=== PATIENT | male | born 1965 | race Caucasian/White ===

== ENCOUNTER 2021-01-24 07:20 | Outpatient (REF) | payer OTHER, SELFPAY ==
[2021-01-24 07:56] LABS: MANUAL DIFF FLAG NO
[2021-01-24 08:02] LABS: Basophils Percent Auto 0.3 % (0-2); Eosinophils Absolute Auto 0.2 X10*3/uL (0.0-0.4); Eosinophils Percent Auto 2.3 % (0-4); Hematocrit 47.2 % (42-52); Hemoglobin 16.1 g/dl (14.0-18.0); Imm Gran Abs Auto 0.02 X10*3/uL (0.00-0.03); Imm Gran Pct Auto 0.3 % (0.0-0.4); Lymphocytes Absolute Auto 1.3 X10*3/uL (1.2-4.9); Lymphocytes Percent Auto 19.8 % (20-40); Mean Corpuscular HGB Conc 34.1 g/dl (31.0-36.0); Mean Corpuscular Hemoglobin 31.9 pg (27.0-33.0); Mean Corpuscular Volume 93.7 fL (80-98); Monocytes Absolute Auto 0.6 X10*3/uL (0.1-1.2); Monocytes Percent Auto 8.7 % (2-11); Neutrophils Absolute Auto 4.5 X10*3/uL (2.0-8.3); Neutrophils Percent Auto 68.6 % (45-73); Platelet Count 207 X10*3/uL (160-400); Red Blood Count 5.04 X10*6/uL (4.60-5.80); Red Cell Distribution Width 12.3 % (11.0-16.0); White Blood Count 6.6 X10*3/uL (4.8-10.8)
[2021-01-24 08:30] LABS: Alanine Aminotransferase 23 U/L (0-40); Albumin Level 4.6 g/dL (3.5-5.0); Alkaline Phosphatase 58 U/L (39-117); Anion Gap 13 (12-20); Aspartate Amino Transferase 23 U/L (5-37); Bilirubin Total 0.9 mg/dL (0.0-1.0); Blood Urea Nitrogen 12 mg/dL (9-16); Calcium 9.3 mg/dL (8.4-10.2); Carbon Dioxide 30 mmol/L (22-29); Chloride 103 mmol/L (96-108); Cholesterol 242 mg/dL; Estimated Glomerular Filt Rate > 60; Glucose Fasting 96 mg/dL (60-99); HDL Cholesterol 42 mg/dL; LDL Cholesterol Calculated 173 mg/dl; Potassium 4.5 mmol/L (3.3-5.1); Sodium 141 mmol/L (135-145); Total Protein 7.3 g/dL (6.5-8.0); Triglycerides 137 mg/dL
[2021-01-26 10:06] LABS: SARS COV2 IgG Negative (Negative)
== END 2021-01-24 07:21 | disposition home or self-care (01) ==
LOC: HO.LAB 07:20
PROVIDERS: PCP Internal Medicine; Visit Provider Internal Medicine
DX: Z00.00 Encounter for general adult medical examination without abnormal findings (principal); E11.9 Type 2 diabetes mellitus without complications; Z20.822 Contact with and (suspected) exposure to COVID-19
CPT/HCPCS: 36415; 80053; 80061; 85025; 86769

== ENCOUNTER → 2022-03-28 14:05 | Outpatient (BNVA) | payer OTHER, SELFPAY | PROVIDERS: PCP Internal Medicine; Referring Provider Internal Medicine; Visit Provider Surgery | DX: K62.5 Hemorrhage of anus and rectum (principal) ==

== ENCOUNTER 2022-05-18 06:43 | Day surgery (SDC) | payer OTHER, SELFPAY ==
--- NOTE | 2022-05-17 11:38 | HO.ANESPROP2 ---
Documented by User: Linda Diaz NP 05/17/22 11:38 HPI - Anesthesia Eval Consult details Narrative: 56yo M for Colonoscopy [facility] Active Problems Active Problems: All Active Problems (Updated 02/21/22 @ 09:33 by Heron Franklin MD) Rectal bleeding (Acute) Hyperlipidemia (Acute) Physical exam (Acute) Past Medical History Medical History Hyperlipidemia Family History Family History Father No problems noted. Mother No problems noted. Surgical History Surgical History History of cholecystectomy History of knee replacement procedure of left knee Social History Social History Housing: House Alcohol intake: current Alcohol intake frequency: 0-2 drinks per day Patient Tobacco Use Status: Current everyday Tobacco user Tobacco use type: Cigarette Cigarettes Per Day: 2 Smoked in Last 30 Days: Yes e-Cigarette/Vaping Use: Never Used Patient Interested in Nicotine Replacement: No Second Hand Smoke Exposure: No Are you DNR?: No Advance Directives: No Advance Directives Information Provided: Yes Nutrition Risks: No Nutritional Risk service: No Current occupational status: employed Current occupational exposures/hazards: No Cognitive needs: No Hearing needs: No (needs an order for them) Vision needs: Yes Meds Allergies Allergy/AdvReac Type Severity Reaction Status Date / Time No Known Allergies Allergy Verified 05/18/22 07:25 [No Known Allergies*] Exam Exam Date and Time: May 17, [id number] Assessment and Plan Assessment Anesthesia Assessment: Chart Reviewed Documented by User: Mary Ireland MD 05/18/22 10:42 PMFSH Past Medical History Medical History Hyperlipidemia Family History Family History Father No problems noted. Mother No problems noted. Surgical History Surgical History History of cholecystectomy History of knee replacement procedure of left knee History of Problems with Anesthesia: No Social History Social History Housing: House Alcohol intake: current Alcohol intake frequency: 0-2 drinks per day Patient Tobacco Use Status: Current everyday Tobacco user Tobacco use type: Cigarette Cigarettes Per Day: 2 Smoked in Last 30 Days: Yes e-Cigarette/Vaping Use: Never Used Patient Interested in Nicotine Replacement: No Second Hand Smoke Exposure: No Are you DNR?: No Advance Directives: No Advance Directives Information Provided: Yes Nutrition Risks: No Nutritional Risk service: No Current occupational status: employed Current occupational exposures/hazards: No Cognitive needs: No Hearing needs: No (needs an order for them) Vision needs: Yes Meds Allergies Allergy/AdvReac Type Severity Reaction Status Date / Time No Known Allergies Allergy Verified 05/18/22 07:25 [No Known Allergies*] Exam Airway Mallampati Class: II TM Dist: >3cm Neck ROM: Full Denture: Upper Partial: Lower Loose/Missing/Broken Teeth: Yes, Upper and Lower Heart: RRR Lungs: CTA Assessment and Plan Assessment Anesthesia Assessment: Anesthesia Plan Discussed Final Anesthetic Review History of Problems with Anesthesia: No NPO: Yes ASA Class: II Final Preanesthetic Review: Meds/Allgs Chart Reviewed, Consent Obtained/Reviewed and Anes Risks/Benef Reviewed Patient Risk: Low Procedure Risk: Low Anesthetic Plan Anesthetic Plan: MAC: Disposition: Standard PACU
[2022-05-18 07:21] VITALS: BP 118/80; PULSE 66; RESP 18; TEMP 36.6; O2SAT 95; BMI 31.0
[2022-05-18] MEDS: Lactated Ringers 1,000 ML 100 ML IVCONT (07:25)
--- NOTE | 2022-05-18 07:40 | PC.NURSE ---
dr. haywood aware pt is a smoker. very slight crackles in right lower base. dr. haywood assessed. okay to proceed. no interventions at this time.
--- NOTE | 2022-05-18 09:54 | MHC.SHP ---
Pre-Procedural Eval Section A Date of Service: 05/18/22 Section B Chief Complaint: bleeding Details of Present Illness: passage of bright blood per rectum Relevant Family History (Specify if Yes): No Relevant Social History: None Present Medications: see Short Stay Collaborative assessment Medical History: Significant History ( hyperlipidemia) Allergies: Allergies Allergy/AdvReac Type Severity Reaction Status Date / Time No Known Allergies Allergy Verified 05/18/22 07:25 [No Known Allergies*] Review of Systems Sugical H&P ROS: Negative: Constitution, Cardiovascular, Respiratory, Neurological, Psychiatric, Hem-Onc, Allergic/Immunologic, Gastrointestinal, Genitourinary, Musculoskeletal, Integumentary, Endocrine and Eyes/Ears/Nose/Throat Exam Surgical H&P Exam: Normal: HEENT, Normal: Heart, Normal: Lungs, Normal: Extremities, Normal: Abdomen, Normal: Skin and Normal: Neurological Plan Diagnosis/Plan: Unchanged I have reviewed the history and physical and performed a pertinent physical examination on my patient. No changes have occurred unless specified.
--- NOTE | 2022-05-18 11:04 | P.OP_ITS ---
Operative Note Operative Note Date of Service: 05/18/22 Narrative: Preop diagnosis: Rectal bleeding, and colon cancer screening Postop diagnosis: 1. Small polyp, about 5 mm, at level 30, removed with biopsy forceps 2. small polyp about 2-3 mm, at level 15, removed with biopsy forceps 3. diverticulosis of the sigmoid 4. internal and external hemorrhoid Pprocedure: Colonoscopy with polypectomy using cold forceps x2 surgeon: Angel Bryant MD The patient is a 56-year-old male, referred because of his of bright blood per rectum. He did state that he knows he has hemorrhoids and has had a history of passes of bright blood per rectum in the past. He however says that he is due for his colonoscopy. He says he had a colonoscopy 5 years ago and was told that he needed another 1 within 5 years because of the presence of polyps. He understood the technique of colonoscopy and was aware of the risks, benefits, and alternatives . He was brought to the operating room. He was placed in left lateral decubitus position under monitored anesthesia care. A full digital rectal exam was done. There were no palpable anal lesions. The tip of the Olympus colonoscope was gently introduced through the anal orifice advanced with insufflation all the cecum. The cecum was intubated. The cecum was identified by visualization of the ileocecal valve as well as the appendiceal orifice. The cecal mucosa was unremarkable. The scope was gradually withdrawn with careful examination of the entire colonic mucosa being done with scope withdrawal. The patient had some thin coating of water stools some segments so we had to use the scalehouse attendant to clear the mucosa. It was unlikely that any lesion may have been missed . There was note of moderate diverticulosis of the sigmoid . At level 30 cm, there was note of a 5 mm polyp which was removed using multiple bites of cold forceps. At level 15 cm there was note of a small polyp about 2-3 mm also removed with the biopsy forceps . The rest of the distal rectum was in the anal canal was unremarkable. He did have internal and external margins, non bulky. The scope was then withdrawn completely with desufflation The patient tolerated procedure well. There were no complication noted. His next colonoscopy may likely be within the next 5 years because of his polyps.
[2022-05-18 11:10] VITALS: BP 95/60; PULSE 78; RESP 18; TEMP 36.3; O2SAT 94
[2022-05-18 11:25] VITALS: BP 117/80; PULSE 81; RESP 18; TEMP 36.8; O2SAT 95
== END 2022-05-18 12:37 | disposition home or self-care (01) ==
PROVIDERS: PCP Internal Medicine; Visit Provider Surgery
PROC: 0DJD8ZZ Inspection of Lower Intestinal Tract, Via Natural or Artificial Opening Endoscopic (ICD-10-PCS; CPT 45378; principal; 2022-05-18 10:00)
DX: K62.5 Hemorrhage of anus and rectum (principal); Z86.010 Personal history of colon polyps; K63.5 Polyp of colon; K51.40 Inflammatory polyps of colon without complications; K57.30 Diverticulosis of large intestine without perforation or abscess without bleeding; K64.8 Other hemorrhoids; K64.4 Residual hemorrhoidal skin tags; E78.5 Hyperlipidemia, unspecified; Z90.49 Acquired absence of other specified parts of digestive tract; Z96.652 Presence of left artificial knee joint; F17.210 Nicotine dependence, cigarettes, uncomplicated
CPT/HCPCS: 45380; 88305; J2250

== ENCOUNTER 2024-04-23 08:44 | Outpatient (AMB) | payer OTHER, SELFPAY ==
[2024-04-23 08:48] VITALS: BP 118/72; PULSE 70; O2SAT 98; BMI 30.9
--- NOTE | 2024-04-23 08:48 | MHC.PC.OV ---
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: No Accompanied by: Self / Same As Patient Allergies No Known Allergies [No Known Allergies*] Allergy (Verified 04/23/24 08:48) Tobacco use date assessed: 04/23/24 Dental Screening Dental Screen Date: 04/23/24 Did you have a dental visit in the last 12 months?: No Did you have a dental problem in the last 6 months where you did not have access to dental care?: No HPI annual exam HPI Details has some fecal incontinence for a few years PFSH Medical History Hyperlipidemia Surgical History History of cholecystectomy History of knee replacement procedure of left knee Family History Father No problems noted. Mother No problems noted. Social History Housing: House Alcohol intake: current Alcohol intake frequency: 0-2 drinks per day Patient Tobacco Use Status: Current everyday Tobacco user Tobacco use type: Cigarette Cigarettes Per Day: 2 e-Cigarette/Vaping Use: Never Used Second Hand Smoke Exposure: No service: No Current occupational status: employed Current occupational exposures/hazards: No Cognitive needs: No Hearing needs: No (needs an order for them) Vision needs: Yes Questionnaire PHQ-9 Over the last 2 weeks, how often have you been bothered by any of the following problems? 1. Little interest or pleasure in doing things: not at all 2. Feeling down, depressed, or hopeless: not at all 3. Trouble falling or staying asleep, or sleeping too much: not at all 4. Feeling tired or having little energy: not at all 5. Poor appetite or overeating: not at all 6. Feeling bad about yourself - or that you are a failure or have let yourself or your family down: not at all 7. Trouble concentrating on things, such as reading the newspaper or watching television: not at all 8. Moving or speaking so slowly that other people could have noticed. Or the opposite - being so fidgety or restless that you have been moving around a lot more than usual: not at all 9. Thoughts that you would be better off or of hurting yourself in some way: not at all Total score: 0 Depression Screening Interpretation: Negative Depression Screening Done: Yes 21627 - PHQ-9 Billing: Yes Source: Developed by Drs. John Downing, Cammy Wellington, Harpal Dyer and colleagues, with an educational nadiya from [employer]. Thrive Questionnaire Date Thrive assessed: 04/23/24 I am a: Patient What is your living situation today?: I have a steady place to live Within the past 12 months, did the food you bought not last and you didn't have the money to get more?: Never true Within the past 12 months, did you worry whether your food would run out before you got money to buy more?: Never true Do you have trouble paying for medicines?: No Do you have trouble getting transportation to medical appointments?: No Do you have trouble paying your heating and electricity bill?: No Do you have trouble taking care of your child, family member or friend?: No Do you have trouble with day-to-day activities such as bathing, preparing meals, shopping, managing finances, etc.?: No Are you currently unemployed and looking for a job?: No Are you interested in more education?: No Please select the resources that you would like help with: None Currently or been in a relationship where the following occur: no concerns reported THRIVE Score: 0 AUDIT C Alcohol Use Questionnaire (AUDIT-C) 1. How often do you have a drink containing alcohol?: 4 or more times a week 2. How many drinks containing alcohol do you have on a typical day when you are drinking?: 5 or 6 3. How often do you have six or more drinks on one occasion?: Never Total Score: 6 Score Reviewed/Action Taken: Yes JANET-7 AMB Questionnaire JANET-7 Date JANET - 7 assessed: 04/23/24 Feeling nervous, anxious, or on edge: 0 = Not at all Not being able to stop or control worryin = Not at all Worrying too much about different things: 0 = Not at all Trouble relaxin = Not at all Being so restless that it is hard to sit still: 0 = Not at all Becoming easily annoyed or irritable: 0 = Not at all Feeling afraid as if something awful might happen: 0 = Not at all Total JANET-7 score (0-4 normal; 5-9 mild; 10-14 moderate; 15-21 severe): 0 Source: Developed by Drs. John Downing, Cammy Wellington, Harpal Dyer and colleagues, with an educational nadiya from [employer]. JANET-7 Assessment Billing JANET-7 Assessment Tool: JANET-7 Assessment 36639 Review of Systems Const Denies chills, Denies fatigue, Denies headache(s) and Denies weight loss Eyes Denies change in vision, Denies diplopia and Denies eye pain ENT Denies vertigo, Denies dizziness, Denies headache(s) and Denies nasal discharge Card Denies chest pain, Denies rapid heart rate and Denies dyspnea on exertion Resp Denies chest congestion, Denies cough, Denies pain with cough and Denies dyspnea on exertion GI Denies abdominal pain, Denies hematochezia and Denies change in bowel habits Musc Denies myalgias, Denies arthralgias and Denies joint swelling Skin/Breast Denies lesions and Denies unusual bruising Neuro Denies vertigo, Denies dizziness, Denies headache(s) and Denies focal weakness Endo Denies fatigue Physical exam (Primary Care) Vital Signs: Last Vital Signs Pulse 70 04/23/24 08:48 BP 118/72 04/23/24 08:48 Pulse Ox 98 04/23/24 08:48 Oxygen Delivery Method Room Air 04/23/24 08:48 BMI result Body Mass Index 30.9 Tobacco/Smoking Status: Tobacco use Status Tobacco use date assessed 04/23/24 04/23/24 08:53 Patient Tobacco Use Status Current everyday Tobacco 04/23/24 08:53 Tobacco use type Cigarette 04/23/24 08:53 e-Cigarette/Vaping Use Never Used 04/23/24 08:53 PHQ-9: PHQ-9 Score PHQ-9: Total score 0 04/23/24 08:53 Depression Screening Interpretation: Negative Thrive Assessment: Date of Thrive Assessment Date Thrive assessed 04/23/24 04/23/24 08:53 Currently or been in a relationship where the following occur: no concerns reported Const General: cooperative, healthy appearing and no acute distress Orientation/consciousness: oriented to person, oriented to place and oriented to time HENMT Head: Yes normal to inspection, Yes normocephalic and Yes atraumatic Mouth: Normal oral and palatal mucosa present and tongue normal Throat: Yes posterior oropharynx normal and Yes uvula midline Eyes General: appearance normal, both eyes and all related structures Neck Neck: Yes normal visual inspection, Yes full ROM and Yes no lymphadenopathy Thyroid: Thyroid normal Carotids: normal carotid upstroke Chest Chest palpation & inspection: normal inspection of the chest Resp Effort & Inspection: normal respiratory effort and able to speak in complete sentences Auscultation: clear to auscultation bilaterally Cardio Jugular venous distension: no JVD Palpation: normal PMI Rate: regular rate Rhythm: regular rhythm Heart sounds: S1 normal heart sound present and S2 normal heart sound present GI Inspection: Yes normal to inspection Palpation (GI): Soft to palpation and No hepatosplenomegaly present Auscultation: normal bowel sounds General: Yes no CVA tenderness Back/Spine/Pelvis Back: no CVA tenderness Skin General skin exam: no rashes or lesions noted Neuro General: oriented to person, oriented to place and oriented to time Extrem General: Yes normal to inspection and Yes full ROM Assessment and Plan Assessment & Plan (1) Physical exam: Code(s): Z00.00 - Encounter for general adult medical examination without abnormal findings Plan: do labs (2) Fecal incontinence: Code(s): R15.9 - Full incontinence of feces Plan: ref gen shar Orders: Orders Complete Blood Count Auto Diff Today Z13.0 - Encounter for screening for diseases of the blood and blood-forming organs and certain disorders involving the immune mechanism Comprehensive [place]. Panel Fast Today Z13.9 - Encounter for screening, unspecified Lipid Panel Today Z13.220 - Encounter for screening for lipoid disorders Prostate Specific Antigen Scr Today Z00.00 - Encounter for general adult medical examination without abnormal findings Referrals General Surgery Referral R15.9 - Full incontinence of feces Coding Level of Care Code Est Pt Prev Care 40-64y(21063) Diagnoses Physical exam Z00.00 Fecal incontinence R15.9 Additional Codes JANET-7 Assessment Billing - JANET-7 Assessment Tool: JANET-7 Assessment [id number] ([id number])
== END 2024-04-23 09:09 | disposition home or self-care (01) ==
PROVIDERS: PCP Internal Medicine; Visit Provider Internal Medicine
DX: Z00.00 Encounter for general adult medical examination without abnormal findings (principal); R15.9 Full incontinence of feces
CPT/HCPCS: 99396

== ENCOUNTER 2025-04-14 07:46 | Outpatient (AMB) | payer OTHER, SELFPAY ==
--- NOTE | 2025-04-14 07:56 | MHC.OFFVIS ---
Vital Signs 04/14/25 08:04 Height 5 ft 9 in Weight 208 lb BMI 30.7 BP 140/78 H Blood Pressure Location Lt brachial Position Sitting Pulse 75 Pulse Oximetry (%) 96 Oxygen Delivery Method Room Air Intake Visit Reasons: colo screening Intake Note: Patient new consult for 2nd pre Colonoscopy screening. Patient denies any GI issues for today. Patient have last Colonoscopy with Dr. Bryant. Legal Billing Coordinator Required: No Accompanied by: Self / Same As Patient Allergies No Known Allergies [No Known Allergies*] Allergy (Verified 04/14/25 07:55) Medication List - Last Reconciled 04/14/25 by Ginny Mello CNP bisacodyl 5 mg PO ONCE 1 day polyethylene glycol 3350 (Miralax) 238 grams PO ONCE HPI HPI colo screening: Details: Patient is a 59-year-old male with PMH of hyperlipidemia. Referred by PCP for further evaluation of fecal incontinence. He presents today for pre colonoscopy screening. he denies any GI symptoms, including fecal incontinence. Shares his main priority is colonoscopy screening given his history of polyps found on his last two colonoscopies. He denies any FDR history with colon cancer. He reports daily bowel movements without difficulty. He reports infrequent pyrosis that is triggered by foods. States he avoids those foods for prevention. Patient denies: regurgitation, dysphasia, unintentional wt loss, ab pain or melena/hematochezia. States he plans to reconnect with General surgery to discuss abdominal hernia repair. Social hx: six pack of beer /day denies recreational drug use some of day cigarette smoker - family hx as below -denies personal hx of CA -significant cardiopulmonary history -tolerated anesthesia in the past without difficulty. PFSH Medical History (Updated 04/14/25 @ 08:47 by Ginny Mello CNP) Alcohol use Current smoker on some days Heartburn Colon polyp, hyperplastic Hyperlipidemia Surgical History (Updated 04/14/25 @ 07:57 by Racheal Damon) Hx of colonoscopy History of cholecystectomy History of knee replacement procedure of left knee Family History Father No problems noted. Mother No problems noted. Social History Housing: House Alcohol intake: current Alcohol intake frequency: 0-2 drinks per day Patient Tobacco Use Status: Current everyday Tobacco user Tobacco use type: Cigarette Cigarettes Per Day: 2 e-Cigarette/Vaping Use: Never Used Second Hand Smoke Exposure: No service: No Current occupational status: employed Current occupational exposures/hazards: No Cognitive needs: No Hearing needs: No (needs an order for them) Vision needs: Yes Review of Systems Const Reports as per HPI ENT Reports as per HPI Card Reports as per HPI Resp Reports as per HPI GI Reports as per HPI Reports as per HPI Physical Exam Const General: healthy appearing, no acute distress and well developed Nutritional Appearance: well nourished Orientation/consciousness: patient oriented x3 HEENT Head: Yes normal to inspection, Yes normocephalic and Yes atraumatic Face and sinus: Yes normal facial exam Eyes General: appearance normal, both eyes and all related structures Neck Neck: Yes normal visual inspection Resp Effort & Inspection: normal respiratory effort, able to speak in complete sentences, no tracheal deviation and symmetric chest movement Auscultation: clear to auscultation bilaterally Cardio Jugular venous distension: no JVD Rate: regular rate Rhythm: regular rhythm Heart sounds: S1 normal heart sound present, S2 normal heart sound present, no gallops and no murmurs GI Inspection: Yes normal to inspection and No distended Palpation (GI): Soft to palpation, not firm, nontender, No hepatosplenomegaly present and Hernia present (+ midline rigid ) umbilical Auscultation: normal bowel sounds Neuro General: patient oriented x3 Gait exam (Neuro): Normal gait present Psych Appearance: grossly normal Mental Status: mental status grossly normal Speech and movement: Normal speech and movement present Affect: normal affect Attitude: cooperative Thought process: Normal thought process present Thought content: Normal thought content present Insight: Good insight present (Psych) Judgement: Good judgement present (Psych) Results Reviewed Results Reviewed: Operative Note Date of Service: 05/18/22 Narrative: Preop diagnosis: Rectal bleeding, and colon cancer screening Postop diagnosis: 1. Small polyp, about 5 mm, at level 30, removed with biopsy forceps 2. small polyp about 2-3 mm, at level 15, removed with biopsy forceps 3. diverticulosis of the sigmoid 4. internal and external hemorrhoid Pprocedure: Colonoscopy with polypectomy using cold forceps x2 surgeon: Angel Bryant MD The patient is a 56-year-old male, referred because of his of bright blood per rectum. He did state that he knows he has hemorrhoids and has had a history of passes of bright blood per rectum in the past. He however says that he is due for his colonoscopy. He says he had a colonoscopy 5 years ago and was told that he needed another 1 within 5 years because of the presence of polyps. He understood the technique of colonoscopy and was aware of the risks, benefits, and alternatives . He was brought to the operating room. He was placed in left lateral decubitus position under monitored anesthesia care. A full digital rectal exam was done. There were no palpable anal lesions. The tip of the Olympus colonoscope was gently introduced through the anal orifice advanced with insufflation all the cecum. The cecum was intubated. The cecum was identified by visualization of the ileocecal valve as well as the appendiceal orifice. The cecal mucosa was unremarkable. The scope was gradually withdrawn with careful examination of the entire colonic mucosa being done with scope withdrawal. The patient had some thin coating of water stools some segments so we had to use the cloth winder machine operator to clear the mucosa. It was unlikely that any lesion may have been missed . There was note of moderate diverticulosis of the sigmoid . At level 30 cm, there was note of a 5 mm polyp which was removed using multiple bites of cold forceps. At level 15 cm there was note of a small polyp about 2-3 mm also removed with the biopsy forceps . The rest of the distal rectum was in the anal canal was unremarkable. He did have internal and external margins, non bulky. The scope was then withdrawn completely with desufflation The patient tolerated procedure well. There were no complication noted. His next colonoscopy may likely be within the next 5 years because of his polyps. PATHOLOGY: Received: 05/18/22 Diagnosis A. Colon, 30 cm, polypectomy: Inflamed hyperplastic mucosal polyp. B. Colon, 15 cm, polypectomy: Hyperplastic mucosal polyp. Clinical History Pre-Op Dx: Bleeding Post-Op Dx: Diverticulosis, polyps, hemorrhoids Assessment & Plan Assessment & Plan (1) Colon polyp, hyperplastic: Comment: 05/18/22 colonoscopy (Dr. Bryant) complete-Hyperplastic mucosal polyp (one at 30 cm, one at 15 cm), diverticulosis (sigmoid), internal and external hemorrhoids. Recommendations to repeat in five years Code(s): K63.5 - Polyp of colon Category: Medical Qualifiers: Colon location: unspecified part of colon Qualified Code(s): K63.5 - Polyp of colon Plan: Reviewed colonoscopy results from 2021 with hyperplastic polyps X 2 < 10mm findings and recommendations for repeat in 5 years. However, for patient's peace of mind we will proceed with colonoscopy as requested. Diagnostic Tests: Prescriptions for laxative tablets and Miralax sent to pharmacy; instructions for Gatorade purchase and clear liquid diet given. Patient educated on procedure preparation, including avoiding certain foods and ensuring clear liquid intake. Advised on necessity for ride post-procedure due to sedation. (2) Heartburn: Code(s): R12 - Heartburn Category: Medical Plan: mild and intake dependent. Managed with lifestyle modifications Advised against ETOH use Continue to avoid triggers Plan Shared decision-making to follow-up as needed after colonoscopy. Time: I spent a total of 20 minutes on the date of encounter which includes: Preparing to see the patient (reviewed previous documentation, test results and medical history) Performing a medically appropriate exam and/or evaluation Ordering medications, tests, and procedures Documenting clinical information in the health record Medications: New bisacodyl Take four tablets once for 1 day per colonoscopy instructions 5 mg PO ONCE 1 day 4 tabs 0RF polyethylene glycol 3350 (Miralax) per colonoscopy prep instructions 238 grams PO ONCE 238 grams 0RF Coding Level of Care Code New Pt New Pt Level 3 (30110) Patient Type New Diagnoses Hyperplastic colonic polyp, unspecified part of colon K63.5 Colon location: unspecified part of colon Heartburn R12
[2025-04-14 08:04] VITALS: BP 140/78; PULSE 75; O2SAT 96; BMI 30.7
== END 2025-04-14 08:22 | disposition home or self-care (01) ==
LOC: HO.HGI 07:46
PROVIDERS: PCP Internal Medicine; Visit Provider Nurse Practitioner Family
DX: K63.5 Polyp of colon (principal); R12 Heartburn
CPT/HCPCS: 99203

== ENCOUNTER → 2025-04-14 07:46 | Outpatient (BNVA) | payer OTHER, SELFPAY | PROVIDERS: PCP Internal Medicine; Visit Provider Nurse Practitioner Family ==

== ENCOUNTER 2025-04-26 08:55 | Outpatient (AMB) | payer OTHER, SELFPAY ==
--- NOTE | 2025-04-26 09:14 | MHC.PC.OV ---
Vital Signs 04/26/25 09:22 Height 5 ft 9 in Weight 211 lb BMI 31.2 BP 120/66 Blood Pressure Location Lt brachial Position Sitting Pulse 80 Pulse Source Pulse Oximeter Temp 97.3 F Temp Source Temporal Artery Scan Pulse Oximetry (%) 95 Oxygen Delivery Method Room Air Intake Visit Reasons: LALI Dr Franklin Intake Note: Patient is here today for LALI from Dr Franklin Ingredient Scaler Required: No Choral Teacher: Not Required per policy Accompanied by: Self / Same As Patient Allergies No Known Allergies [No Known Allergies*] Allergy (Verified 04/26/25 09:44) Medication List - Last Reconciled 04/26/25 by Fawn Nickerson PA-C bisacodyl 5 mg PO ONCE 1 day polyethylene glycol 3350 (Miralax) 238 grams PO ONCE Tobacco use date assessed: 04/26/25 Dental Screening Dental Screen Date: 04/26/25 Did you have a dental visit in the last 12 months?: No Did you have a dental problem in the last 6 months where you did not have access to dental care?: No Was dental information given to patient?: Patient declined HPI LALI Dr Franklin HPI Details 59-year-old male with past medical history of hyperlipidemia, fecal incontinence and heartburn last seen 04/[address] Franklin coming in for follow up.?In review of the notes, patient was seen by GI 04/2025 colonoscopy was ordered and advised against EtOH use regarding GERD.? Presenting for a transfer of care and evaluation of multiple chronic conditions. 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 The condition causes significant pain and immobility during severe episodes, requiring rest and avoidance of physical exertion. The patient experiences mild fecal incontinence, described as leaky, which has been ongoing and was previously referred to general surgery, though the referral was not pursued. The patient reports significant hearing difficulties, with a history of poor hearing test results and tinnitus, described as a constant swish. The patient developed dermatitis after using a new body wash, which led to a rash primarily on the back and hands. The condition improved after discontinuing the product, but some symptoms persist. The patient is a current smoker but expresses a willingness to quit, although he declines nicotine replacement therapy at this time. PENDING SALE TO [facility] Medical History Alcohol use Current smoker on some days Heartburn Colon polyp, hyperplastic Hyperlipidemia Surgical History Hx of colonoscopy History of cholecystectomy History of knee replacement procedure of left knee Family History Father No problems noted. Mother No problems noted. Social History Housing: House Alcohol intake: current Alcohol intake frequency: 0-2 drinks per day Patient Tobacco Use Status: Current everyday Tobacco user Tobacco use type: Cigarette Cigarette Packs Per Day: 0.25 Cigarettes Per Day: 5 e-Cigarette/Vaping Use: Never Used Second Hand Smoke Exposure: Yes service: No Current occupational status: employed Current occupational exposures/hazards: No Cognitive needs: No Hearing needs: No (needs an order for them) Vision needs: Yes (Glasses) Questionnaire PHQ-9 Over the last 2 weeks, how often have you been bothered by any of the following problems? 1. Little interest or pleasure in doing things: not at all 2. Feeling down, depressed, or hopeless: not at all 3. Trouble falling or staying asleep, or sleeping too much: not at all 4. Feeling tired or having little energy: not at all 5. Poor appetite or overeating: not at all 6. Feeling bad about yourself - or that you are a failure or have let yourself or your family down: not at all 7. Trouble concentrating on things, such as reading the newspaper or watching television: not at all 8. Moving or speaking so slowly that other people could have noticed. Or the opposite - being so fidgety or restless that you have been moving around a lot more than usual: not at all 9. Thoughts that you would be better off or of hurting yourself in some way: not at all Total score: 0 Depression Screening Interpretation: Negative Depression Screening Done: Yes 52015 - PHQ-9 Billing: Yes Source: Developed by Drs. John Downing, Cammy Wellington, Harpal Dyer and colleagues, with an educational nadiya from [employer]. Thrive Questionnaire Date Thrive assessed: 04/19/25 I am a: Patient What is your living situation today?: I have a steady place to live Within the past 12 months, did the food you bought not last and you didn't have the money to get more?: I choose not to answer this question Within the past 12 months, did you worry whether your food would run out before you got money to buy more?: I choose not to answer this question Do you have trouble paying for medicines?: I choose not to answer this question Do you have trouble getting transportation to medical appointments?: No Do you have trouble paying your heating and electricity bill?: No Do you have trouble taking care of your child, family member or friend?: No Do you have trouble with day-to-day activities such as bathing, preparing meals, shopping, managing finances, etc.?: No Are you currently unemployed and looking for a job?: No Are you interested in more education?: No Please select the resources that you would like help with: None Currently or been in a relationship where the following occur: I choose not to answer THRIVE Score: 0 AUDIT C Alcohol Use Questionnaire (AUDIT-C) 1. How often do you have a drink containing alcohol?: 2-3 times a week 2. How many drinks containing alcohol do you have on a typical day when you are drinking?: 1 or 2 3. How often do you have six or more drinks on one occasion?: Never Total Score: 3 JANET-7 AMB Questionnaire JANET-7 Date JANET - 7 assessed: 04/26/25 Feeling nervous, anxious, or on edge: 0 = Not at all Not being able to stop or control worryin = Not at all Worrying too much about different things: 0 = Not at all Trouble relaxin = Not at all Being so restless that it is hard to sit still: 0 = Not at all Becoming easily annoyed or irritable: 0 = Not at all Feeling afraid as if something awful might happen: 0 = Not at all Total JANET-7 score (0-4 normal; 5-9 mild; 10-14 moderate; 15-21 severe): 0 Source: Developed by Drs. John Downing, Cammy Wellington, Harpal Dyer and colleagues, with an educational nadiya from [employer]. JANET-7 Assessment Billing JANET-7 Assessment Tool: JANET-7 Assessment 72835 Review of Systems Const Denies body aches, Denies chills, Denies fever(s), Denies headache(s) and Denies poor appetite Eyes Reports no additional complaints ENT Denies dysphagia, Denies dizziness, Denies headache(s) and Denies odynophagia Card Denies chest pain, Denies syncope, Denies edema, Denies irregular heart rhythm, Denies lightheadedness and Denies dyspnea Resp Denies cough and Denies dyspnea GI Denies abdominal pain, Denies constipation, Denies dysphagia, Reports heartburn, Denies diarrhea, Denies nausea, Denies odynophagia and Denies vomiting Reports no additional complaints Musc Details: back pain Reports no additional complaints and Denies abnormal gait Skin/Breast Reports system reviewed and no additional complaints, except as documented Neuro Denies abnormal gait, Denies dizziness, Denies syncope and Denies headache(s) Psych Reports no additional complaints Physical exam (Primary Care) Vital Signs: Last Vital Signs Temp 97.3 F 04/26/25 09:22 Oxygen Delivery Method Room Air 04/26/25 09:22 BMI result Body Mass Index 31.2 Tobacco/Smoking Status: Tobacco use Status Tobacco use date assessed 04/23/24 04/26/25 09:16 Patient Tobacco Use Status Current everyday Tobacco 04/26/25 09:16 Tobacco use type Cigarette 04/26/25 09:16 e-Cigarette/Vaping Use Never Used 04/26/25 09:16 PHQ-9: PHQ-9 Score PHQ-9: Total score 0 04/26/25 09:16 Depression Screening Interpretation: Negative Thrive Assessment: Date of Thrive Assessment Date Thrive assessed 04/19/25 04/26/25 09:16 Currently or been in a relationship where the following occur: I choose not to answer Const General: cooperative, healthy appearing, comfortable and no acute distress Orientation/consciousness: patient oriented x3 HENMT Head: Yes normocephalic Ears: hearing grossly normal bilaterally, TM's normal bilaterally and EAC's normal General nose exam: Normal external nose present Eyes General: appearance normal, both eyes and all related structures Conjunctivae: conjunctivae normal Neck Neck: Yes full ROM and Yes no lymphadenopathy Resp Effort & Inspection: normal respiratory effort Auscultation: clear to auscultation bilaterally, no crackles, no rales, no rhonchi and no wheezes Cardio Rate: regular rate Rhythm: regular rhythm Back/Spine/Pelvis Other: Tenderness to palpation of low back and paraspinal muscles Skin General skin exam: no rashes or lesions noted Neuro General: patient oriented x3 Gait exam (Neuro): Normal gait present Extrem General: Yes normal to inspection, Yes full ROM and No edema Psych Affect: normal affect Attitude: cooperative Insight: Good insight present (Psych) Judgement: Good judgement present (Psych) Coding Level of Care Code Est Pt Level 4 (09402) Diagnoses Heartburn R12 Hyperlipidemia E78.5 Hyperplastic colonic polyp, unspecified part of colon K63.5 Colon location: unspecified part of colon Screening for prostate cancer Z12.5 Tobacco use disorder F17.200 Tinnitus of both ears H93.13 Laterality: bilateral Decreased hearing of both ears H91.93 Laterality: bilateral Skin lesion L98.9 Chronic bilateral low back pain, unspecified whether sciatica present M54.50; G89.29 Back pain location: low back pain Chronicity: chronic Back pain laterality: bilateral Sciatica presence: unspecified whether sciatica present Dermatitis L30.9 Additional Codes PHQ-9 - 11578 - PHQ-9 Billing: Yes ([id number]) JANET-7 Assessment Billing - JANET-7 Assessment Tool: JANET-7 Assessment 29011 ([id number]) Assessment & Plan Assessment & Plan (1) Heartburn: Code(s): R12 - Heartburn Category: Medical Plan: Avoid trigger foods such as citrus, tomato products, soda, caffeine, spicy foods and other foods that may be irritating to your stomach. Avoid laying flat 3-4 hours after eating and elevate the head of the bed 30 degrees to prevent acid from moving into the esophagus. (2) Hyperlipidemia: Comment: 20 min reviewing chart evaluating patient and documenting Code(s): E78.5 - Hyperlipidemia, unspecified Category: Medical Plan: Avoid foods that are high in cholesterol such as red meat, fried foods, eggs and baked goods. Triglyceride goal of less than 150 and LDL goal of less than 130. Not currently on medical management (3) Colon polyp, hyperplastic: Comment: 05/18/22 colonoscopy (Dr. Bryant) complete-Hyperplastic mucosal polyp (one at 30 cm, one at 15 cm), diverticulosis (sigmoid), internal and external hemorrhoids. Recommendations to repeat in five years Code(s): K63.5 - Polyp of colon Category: Medical Qualifiers: Colon location: unspecified part of colon Qualified Code(s): K63.5 - Polyp of colon Plan: Patient is currently following with GI and is to be scheduled for colonoscopy. (4) Screening for prostate cancer: Code(s): Z12.5 - Encounter for screening for malignant neoplasm of prostate Category: Medical Plan: Blood work ordered (5) Tobacco use disorder: Code(s): F17.200 - Nicotine dependence, unspecified, uncomplicated Category: Medical Plan: Smoking cigarettes and the use of tobacco can be harmful. We discussed the importance of stopping and options to aid in smoking cessation. Declining medical management or nicotine replacement therapy today. (6) Tinnitus: Code(s): H93.19 - Tinnitus, unspecified ear Category: Medical Qualifiers: Laterality: bilateral Qualified Code(s): H93.13 - Tinnitus, bilateral Plan: Patient also complaining of bilateral nonpulsatile tinnitus referral was placed to hearing test today. (7) Decreased hearing: Code(s): H91.90 - Unspecified hearing loss, unspecified ear Category: Medical Qualifiers: Laterality: bilateral Qualified Code(s): H91.93 - Unspecified hearing loss, bilateral Plan: Patient has decreased hearing referral was placed to hearing test today. Bilateral ears without cerumen. (8) Skin lesion: Code(s): L98.9 - Disorder of the skin and subcutaneous tissue, unspecified Category: Medical Plan: Patient has several skin lesions on the lower extremities. Referral was placed to agriculture sales account manager today for further evaluation and treatment (9) Back pain: Code(s): M54.9 - Dorsalgia, unspecified Category: Medical Qualifiers: Back pain location: low back pain Chronicity: chronic Back pain laterality: bilateral Sciatica presence: unspecified whether sciatica present Qualified Code(s): M54.50 - Low back pain, unspecified; G89.29 - Other chronic pain Plan: Patient has a reported history of herniated disc and will occasionally have flares and back pain. Most recently he was lifting furniture and noticed increased pain in his back. He states this is a mild episode is not interested in spinal specialist time. Denies any new bowel or bladder incontinence. Prescription was sent for cyclobenzaprine to be used at nighttime advised patient he can not drive on this medication. Reviewed red flag symptoms and when to present for re-evaluation. (10) Dermatitis: Code(s): L30.9 - Dermatitis, unspecified Category: Medical Plan: Patient has had allergic contact dermatitis since change in body wash. He has since discontinued the body wash but notices he still has occasional patches that has been slow to resolve. He was seen at urgent care and given a topical cream unsure of the name. Advised patient to continue using his topical cream and reach out to the office if the rash does not resolve. Plan The patient will be referred to general surgery for evaluation of fecal incontinence, as previous referrals were not pursued. A follow-up with the GI specialist is planned for a colonoscopy within the next 60 days to address ongoing gastrointestinal concerns. For the herniated disc, a muscle relaxant will be prescribed to manage acute pain episodes, with advice to avoid driving while on medication due to potential drowsiness. A hearing test will be ordered to assess the extent of hearing loss and tinnitus, with consideration for hearing aids if indicated. The patient is advised to continue using the topical steroid cream for dermatitis and to avoid the irritant body wash. Smoking cessation was discussed, and while the patient is not currently interested in nicotine replacement therapy, he is encouraged to consider cessation strategies. Blood work is ordered plan to follow up in 3 months This note was constructed using voice recognition software. While every effort has been made to ensure accuracy and mustanger, still areas may have been included sometimes these areas may affect the content or meeting of the given symptoms. Total time spent caring for the patient today was 30 minutes. This includes time spent before the visit reviewing the chart, time spent during the visit, and time spent after the visit and documentation. Patient was informed and verbally consented to the use of an ambient scribe for clinic note documentation during this visit. Orders: Orders Lipid Panel Today E78.00 - Pure hypercholesterolemia, unspecified Comprehensive Met. Panel Today R12 - Heartburn, Z00.00 - Encounter for general adult medical examination without abnormal findings Complete Blood Count Auto Diff Today R12 - Heartburn, Z00.00 - Encounter for general adult medical examination without abnormal findings TSH reflex Free T4 Today E78.5 - Hyperlipidemia, unspecified, Z00.00 - Encounter for general adult medical examination without abnormal findings Vitamin B12 and Folate Today E78.5 - Hyperlipidemia, unspecified, Z13.21 - Encounter for screening for nutritional disorder PSA, Ultra Sensitive Today Z00.00 - Encounter for general adult medical examination without abnormal findings, Z12.5 - Encounter for screening for malignant neoplasm of prostate Vitamin D 25-OH Total Today E78.5 - Hyperlipidemia, unspecified, Z00.00 - Encounter for general adult medical examination without abnormal findings Free T4 (Free Thyroxine) Today E78.5 - Hyperlipidemia, unspecified, Z00.00 - Encounter for general adult medical examination without abnormal findings Hemoglobin A1c Today Z13.1 - Encounter for screening for diabetes mellitus Referrals Dermatology Referral L98.9 - Disorder of the skin and subcutaneous tissue, unspecified Speech and Hearing Referral H91.90 - Unspecified hearing loss, unspecified ear, H93.19 - Tinnitus, unspecified ear Medications: New cyclobenzaprine 5 mg PO BEDTIME 30 tabs 0RF
[2025-04-26 09:22] VITALS: BP 120/66; PULSE 80; TEMP 36.3; O2SAT 95; BMI 31.2
== END 2025-04-26 10:05 | disposition home or self-care (01) ==
LOC: HO.HMCH 08:56
PROVIDERS: PCP Internal Medicine
DX: R12 Heartburn (principal); E78.5 Hyperlipidemia, unspecified; K63.5 Polyp of colon; Z12.5 Encounter for screening for malignant neoplasm of prostate; F17.200 Nicotine dependence, unspecified, uncomplicated; H93.13 Tinnitus, bilateral; H91.93 Unspecified hearing loss, bilateral; L98.9 Disorder of the skin and subcutaneous tissue, unspecified; M54.50 Low back pain, unspecified; G89.29 Other chronic pain; L30.9 Dermatitis, unspecified

== ENCOUNTER → 2025-04-26 08:55 | Outpatient (BNVA) | payer OTHER, SELFPAY | PROVIDERS: PCP Internal Medicine | DX: R15.9 Full incontinence of feces (principal); E78.5 Hyperlipidemia, unspecified; K63.5 Polyp of colon; H93.13 Tinnitus, bilateral; H91.93 Unspecified hearing loss, bilateral; M54.50 Low back pain, unspecified; L30.9 Dermatitis, unspecified; G89.29 Other chronic pain; E78.00 Pure hypercholesterolemia, unspecified; H91.90 Unspecified hearing loss, unspecified ear; H93.19 Tinnitus, unspecified ear; F17.210 Nicotine dependence, cigarettes, uncomplicated; R12 Heartburn | CPT/HCPCS: 96127 ==

== ENCOUNTER 2025-05-21 09:58 | Outpatient (REF) | payer OTHER, SELFPAY | END 2025-05-21 09:59 | disposition home or self-care (01) | LOC: HO.SH 09:58 | DX: H93.19 Tinnitus, unspecified ear (principal); H91.90 Unspecified hearing loss, unspecified ear | CPT/HCPCS: 92557; 92567 ==

== ENCOUNTER 2025-10-12 07:18 | Day surgery (SDC) | payer OTHER, SELFPAY ==
[2025-10-12 07:52] VITALS: BMI 30.7
[2025-10-12] MEDS: Lactated Ringers 1,000 ML 100 ML IVCONT (08:05)
--- NOTE | 2025-10-12 08:05 | P.HPSUR_ITS ---
Pre-Procedural Eval Section A - 24 Hr Update-Section A only Date of Service: 10/12/25 Section B - Complete if H&P > 30 days Chief Complaint: screening Relevant Family History (Specify if Yes): No Relevant Social History: Tobacco Use Present Medications: see Short Stay Collaborative assessment Medical History: Significant History (Alcohol use Current smoker on some days Heartburn Colon polyp, hyperplastic Hyperlipidemia) History of Previous Operations: Relevant previous surgery/procedure and date(s) (Hx of colonoscopy History of cholecystectomy History of knee replacement pro cedure of left knee) Allergies: Allergies Allergy/AdvReac Type Severity Reaction Status Date / Time No Known Allergies (No Known Allergy Verified 10/12/25 07:51 Allergies*) Review of Systems Sugical H&P ROS: Negative: Constitution, Cardiovascular, Respiratory, Neurological, Psychiatric, Hem-Onc, Allergic/Immunologic, Gastrointestinal, Genitourinary, Musculoskeletal, Integumentary, Endocrine and Eyes/Ears/Nose/Throat Exam Surgical H&P Exam: Normal: HEENT, Normal: Heart, Normal: Lungs, Normal: Extremities, Normal: Abdomen, Normal: Skin and Normal: Neurological Plan Diagnosis/Plan: Unchanged I have reviewed the history and physical and performed a pertinent physical examination on my patient. No changes have occurred unless specified. Time Spent With Patient Time: Total time managing care of this patient today ____ minutes.
[2025-10-12] MEDS: Albuterol Sulfate (0.083%) 2.5 MG/3 ML VIAL.NEB INHALE (08:17)
--- NOTE | 2025-10-12 08:18 | P.CONAN_ITS ---
Documented by User: Claudia Murphy NP 10/06/25 13:58 HPI - Anesthesia Eval Consult details Narrative: 59 yr old male for colonoscopy +tobacco use PMFSH Active Problems Active Problems: All Active Problems Dermatitis (Acute) Back pain (Acute) Skin lesion (Acute) Decreased hearing (Acute) Tinnitus (Acute) Tobacco use disorder (Acute) Screening for prostate cancer (Acute) Screening for diabetes mellitus (Acute) Heartburn (Acute) Colon polyp, hyperplastic (Acute) Fecal incontinence (Acute) Rectal bleeding (Acute) Hyperlipidemia (Acute) Physical exam (Acute) Past Medical History Medical History Alcohol use Current smoker on some days Heartburn Colon polyp, hyperplastic Hyperlipidemia Family History Family History Father No problems noted. Mother No problems noted. Surgical History Surgical History Hx of colonoscopy History of cholecystectomy History of knee replacement procedure of left knee History of Problems with Anesthesia: No Social History Social History Housing: House Are you a primary career services officer to a significant other at home: No Do you presently have visiting nurse or other home services: No Alcohol intake: current Alcohol intake frequency: 0-2 drinks per day Patient Tobacco Use Status: Current everyday Tobacco user Tobacco use type: Cigarette Cigarette Packs Per Day: 0.25 Cigarettes Per Day: 5 Smoked in Last 30 Days: Yes e-Cigarette/Vaping Use: Never Used Patient Interested in Nicotine Replacement: No Second Hand Smoke Exposure: Yes Have you been hit, kicked, punched, or otherwise hurt by someone within the past year? If so, by whom?: No Are you DNR?: No Advance Directives: No Advance Directives Information Provided: Yes service: No Current occupational status: employed Current occupational exposures/hazards: No Cognitive needs: No Hearing needs: No (needs an order for them) Vision needs: Yes (Glasses) Meds Allergies Allergy/AdvReac Type Severity Reaction Status Date / Time No Known Allergies (No Known Allergy Verified 10/12/25 07:51 Allergies*) Assessment and Plan Final Anesthetic Review History of Problems with Anesthesia: No Documented by User: Marni Long DO 10/12/25 08:20 PMFSH Past Medical History Medical History Alcohol use Current smoker on some days Heartburn Colon polyp, hyperplastic Hyperlipidemia Family History Family History Father No problems noted. Mother No problems noted. Family history of problems with anesthesia: No Surgical History Surgical History Hx of colonoscopy History of cholecystectomy History of knee replacement procedure of left knee History of Problems with Anesthesia: No Social History Social History Housing: House Are you a primary career services officer to a significant other at home: No Do you presently have visiting nurse or other home services: No Alcohol intake: current Alcohol intake frequency: 0-2 drinks per day Patient Tobacco Use Status: Current everyday Tobacco user Tobacco use type: Cigarette Cigarette Packs Per Day: 0.25 Cigarettes Per Day: 5 Smoked in Last 30 Days: Yes e-Cigarette/Vaping Use: Never Used Patient Interested in Nicotine Replacement: No Second Hand Smoke Exposure: Yes Have you been hit, kicked, punched, or otherwise hurt by someone within the past year? If so, by whom?: No Are you DNR?: No Advance Directives: No Advance Directives Information Provided: Yes service: No Current occupational status: employed Current occupational exposures/hazards: No Cognitive needs: No Hearing needs: No (needs an order for them) Vision needs: Yes (Glasses) Meds Allergies Allergy/AdvReac Type Severity Reaction Status Date / Time No Known Allergies (No Known Allergy Verified 10/12/25 07:51 Allergies*) Exam Exam Date and Time: 10/12/25 0819 Height,Weight and Vital Signs: Height 5 ft 9 in Weight 94.2 kg Airway Mallampati Class: II TM Dist: >3cm Neck ROM: Full Denture: Upper Partial: Lower Heart: S1S2 Lungs: Diminished bilaterally Assessment and Plan Assessment Anesthesia Assessment: Anesthesia Plan Discussed and Chart Reviewed Final Anesthetic Review Family History of Problems with Anesthesia: No History of Problems with Anesthesia: No NPO: Yes ASA Class: II Final Preanesthetic Review: No Changes in Pt Med Stat, Meds/Allgs Chart Reviewed, Consent Obtained/Reviewed and Anes Risks/Benef Reviewed Patient Risk: Low Procedure Risk: Low Anesthetic Plan Anesthetic Plan: MAC: and Agree w/ Assess. and Plan Disposition: Standard PACU
[2025-10-12 08:22] VITALS: BP 122/87; PULSE 84; RESP 18; TEMP 36.7; O2SAT 93
--- NOTE | 2025-10-12 09:48 | P.OPN-COLO_ITS ---
Colonoscopy Operative Note Operative Note Date of Service: 10/12/25 Narrative: Operative Information Procedure Description: Colonoscopy Indication: Screening Anesthesia: MAC COLONOSCOPY Instrument: Olympus variable stiffness pediatric scope 190L Colonoscopy Monitoring: Vital signs and clinical assessment, continuous EKG monitoring, Pulse oximetry, Carbon Dioxide monitoring and blood pressure monitoring were done throughout the procedure. Colon withdrawal time was 17 minutes. Procedure: The patient was placed in the left lateral decubitis position and pre-procedure medications were administered. After a digital rectal examination of the ano-rectum, the video colonoscope was inserted into the rectum and advanced through the colon to the cecum/TI. The colonoscope was slowly withdrawn in a retrograde panoramic fashion and the colon mucosa was carefully examined including a retroflexed view of the rectum. Findings and interventions are described below. Procedure Difficulty: moderate, pressure applied Findings: Terminal Ileum-not intubated due to looping Cecum: laterally spreading granular polyp about 12 mm in diameter, lifted with eleview and removed piece meal with cold snare then x 2 ultra clips applied for hemostasis, x 1 sessile polyp 4-6 mm removed with cold snare Ascending Colon: x 3 sessile polyps 8-9 mm, x 1 was lifted with eleview and then all removed with cold snare Transverse Colon -normal Descending Colon:normal Sigmoid Colon: moderate diverticulosis, x 1 sessile polyp 6-7 mm removed with cold forceps, 9-10 mm sessile polyp removed with cold snare Rectum: Retroflexion with moderate sized internal hemorrhoids seen, grade I Anorectum - normal Intervention: cold snare, eleview, cold forceps, clips Colon preparation: Mclean Bowel Preparation Scale Right colon; 2 Transverse colon: 2 Left colon; 2 (0 = Unprepared colon segment with mucosa not seen due to solid stool that cannot be cleared. 1 = Portion of mucosa of the colon segment seen, but other areas of the colon segment not well seen due to staining, residual stool and/or opaque liquid. 2 = Minor amount of residual staining, small fragments of stool and/or opaque liquid, but mucosa of colon segment seen well. 3 = Entire mucosa of colon segment seen well with no residual staining, small fragments of stool or opaque liquid) Impression and Post Procedure Diagnosis: diverticulosis colon polyps x 7 internal hemorrhoids Plan: High fiber diet leaflet Avoid straining at stool, epsom salts and sitz bath, anusol supps or cream Repeat Colonoscopy in 6-12 months due to poylp burden or earlier if clinically indicated --next time use COLOWRAP Above findings were reviewed with the patient and relevant handouts were provided if indicated.
[2025-10-12 09:52] VITALS: BP 90/57; PULSE 94; RESP 14; TEMP 37.4; O2SAT 95
[2025-10-12 10:07] VITALS: BP 111/77; PULSE 89; RESP 15; TEMP 36.8; O2SAT 93
== END 2025-10-12 10:53 | disposition home or self-care (01) ==
PROVIDERS: Visit Provider Internal Medicine Gastroenterology
PROC: 0DJD8ZZ Inspection of Lower Intestinal Tract, Via Natural or Artificial Opening Endoscopic (ICD-10-PCS; CPT 45378; principal; 2025-10-12 09:00)
DX: Z12.11 Encounter for screening for malignant neoplasm of colon (principal); Z86.0102 Personal history of hyperplastic colon polyps; K64.0 First degree hemorrhoids; D12.2 Benign neoplasm of ascending colon; D12.5 Benign neoplasm of sigmoid colon; D12.0 Benign neoplasm of cecum
CPT/HCPCS: 45380; 45385; 45381; 88305; J2704

== ENCOUNTER → 2025-10-12 07:18 | Outpatient (BNV) | payer OTHER, SELFPAY | PROVIDERS: Visit Provider Internal Medicine Gastroenterology | DX: Z12.11 Encounter for screening for malignant neoplasm of colon (principal); K63.5 Polyp of colon; K57.30 Diverticulosis of large intestine without perforation or abscess without bleeding; K64.0 First degree hemorrhoids | CPT/HCPCS: 45385 ==